=== PATIENT | female | born 1965 | race Caucasian/White ===

== ENCOUNTER 2018-03-23 07:28 | Day surgery (SDC) | payer OTHER ==
[2018-03-23] MEDS ORDERED: LIDOCAINE 4% SOLUTION 50 ML BTL (09:41)
== END 2018-03-23 11:27 | disposition home or self-care (01) ==
LOC: GIL 07:28
DX: Z12.11 Encounter for screening for malignant neoplasm of colon (principal); K29.50 Unspecified chronic gastritis without bleeding; K29.80 Duodenitis without bleeding; K64.4 Residual hemorrhoidal skin tags; K57.90 Diverticulosis of intestine, part unspecified, without perforation or abscess without bleeding
CPT/HCPCS: 43239; 82962; 88305; 88312